=== PATIENT | male | born 2000 | race African-American/Black ===

== ENCOUNTER 2022-01-26 19:16 | Emergency (ER) | payer OTHER ==
[2022-01-26] VITALS (14 sets, daily range): BP systolic 116–152; BP diastolic 62–94
[~2022-01-26 19:16] MED LIST: GARDASIL IM; HAVRIX720 UNI1 IM
[2022-01-26] MEDS ORDERED: LISINOPRIL20 M1 PO (19:52)
[2022-01-26] MEDS ORDERED: METFORMIN HCL500 M1 PO (19:53)
[2022-01-26 20:13] LABS: HEMATOCRIT 46.1 % (39.0-50.0); HEMOGLOBIN 14.6 g/dl (14.0-18.0); MEAN CORPUSCULAR HGB 24.8 pG CALC (26.0-32.0); MEAN CORPUSCULAR HGB CONC 31.7 g/dL CAL (32.0-36.0); NEUT# 2.38 thou/uL (1.82-7.42); RED BLOOD COUNT 5.88 mill/uL (4.70-6.10); RED CELL DISTRI WIDTH 14.8 % (11.5-15.5)
[2022-01-26 20:14] LABS: MEAN CELL VOLUME 78.4 fL CALC (80.0-100.0)
[2022-01-26 20:17] LABS: ALBUMIN 4.3 g/dL (3.2-5.0); ALKALINE PHOSPHATASE 74 u/l (38-126); ANION GAP 11 (6-22 (CALC)); BUN 11 mg/dL (9-20); BUN/CREATININE RATIO 13 (12-20 (CALC)); CARBON DIOXIDE 27 mmol/l (22-30); CHLORIDE 108 mmol/l (95-108); CREATININE 0.9 mg/dL (0.7-1.3); GFR FOR AFR.AMER. > 60 ML/MIN (>=60 (CALC)); GFR OTHER RACES > 60 ML/MIN (>=60 (CALC)); POTASSIUM 3.8 mmol/l (3.5-5.1); SGOT/AST 27 u/l (17-59); SODIUM 141 mmol/l (137-146)
[2022-01-26 20:21] LABS: D-DIMER 0.25 mg/L (0.19-0.60)
[2022-01-26 20:25] LABS: BILIRUBIN, TOTAL 0.6 mg/dL (0.0-1.4)
[2022-01-26 20:27] LABS: ACT PARTIAL THROMBO TIME 29.3 SECONDS (20.0-32.5); INTERNATIONAL NORMALIZED RATIO 1.2 RATIO (0.7-1.3)
[2022-01-26 20:30] LABS: MYOGLOBIN 22 ng/mL (0 - 121)
== END 2022-01-26 23:00 | disposition home or self-care (01) ==
LOC: ED 19:16
PROVIDERS: Family Medicine
DX: R00.2 Palpitations (principal); I10 Essential (primary) hypertension; E11.9 Type 2 diabetes mellitus without complications; Z79.84 Long term (current) use of oral hypoglycemic drugs